=== PATIENT | female | born 1995 | race Caucasian/White ===

== ENCOUNTER 2021-06-07 05:54 | Day surgery (SDC) | payer SELFPAY, OTHER ==
--- NOTE | 2021-06-07 | MISC_PTH ---
PATIENT: DOT DAVIS LOC: [facility] – [place] U#:[id number] AGE/SX: 25/F ROOM: RE06/07/[address]: Dr. 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 AM/am 06/09/21 MICROSCOPIC DESCRIPTION Slides are reviewed. GROSS DESCRIPTION Received in fixative is one container labeled with the patient's name and designated possible cementoma. The specimen consists of a molar tooth measuring 2.5 x 1 x 1 cm. No soft tissue is adherent to the tooth. Present also free in the container is a nodular fragment of white-hines bone-like tissue measuring 1 cm in diameter. This fragment is bisected and totally submitted in one cassette after decalcification. Note, no sections of the tooth have been submitted. / AM:shlomo 06/07/2021 TC:5 CPT: 37170,60520
[2021-06-07 06:27] LABS: Internal QC Validated? YES +Cl - CLEAR BKGD; Pregnancy, Urine Negative Negative
[2021-06-07 06:30] VITALS: BP 115/81; PULSE 72; RESP 18; TEMP 36.4; O2SAT 100
[2021-06-07] MEDS: Lactated Ringers 1,000 ML 15 ML IV (06:31)
[2021-06-07] MEDS: Lidocaine 1%/Epi 1:200 (30ml) 30 ML AMPUL (07:53)
[2021-06-07] MEDS: Bupivacaine Mpf 0.5% 30 ML VIAL (07:53)
[2021-06-07 08:39] VITALS: BP 110/65; BP 115/81; PULSE 83; RESP 16; TEMP 36.3; O2SAT 100
[2021-06-07 08:45] VITALS: BP 107/68; BP 115/81; PULSE 84; RESP 15; O2SAT 100
--- NOTE | 2021-06-07 08:57 | PCM.DC ---
Discharge Instructions Follow Up Care Test Results: Test results from this visit will be discussed in further detail at your follow-up appointment, if applicable. Discharge Plan Admission Attending Provider: Medhat Cowart Primary Care Provider: Unique Vargas Primary Instructions Patient Instructions: Surgery for a Mouth or Throat Tumor Discharge Orders/Prescriptions Prescriptions: No Action Adrenal Support 1 tsp PO/SL DAILY RF: 0 Endrocrine Support 1 tsp PO/SL DAILY RF: 0 Kidney Support 0.5 tsp PO/SL DAILY RF: 0 Liver Support 0.5 tsp PO/SL DAILY RF: 0 Stem Cell 2 tab PO/SL DAILY RF: 0 Vital Blend 1 tsp PO/SL DAILY RF: 0 Referrals / Follow Up: Care Physician,No Primary [Primary Care Provider] - Medhat Cowart DDS [STAFF PHYSICIAN] - Disposition Disposition (needs filled in before D/C Order can be placed): Home, Self Care
[2021-06-07 09:00] VITALS: BP 110/77; BP 115/81; PULSE 79; RESP 15; TEMP 36.6; O2SAT 100
[2021-06-07 09:50] VITALS: BP 111/78; BP 115/81; PULSE 73; RESP 16; TEMP 36.2; O2SAT 100
--- NOTE | 2021-06-07 10:05 | OP.PCM_ITS ---
Report of Operation Date of Procedure: 06/07/21 Pre-Operative Diagnosis: Tumor Mandible Post-Operative Diagnosis: Same Surgery/Procedure Performed:: Surgical removal mandibular tumor Type of Anesthesia: General Special Medications: None Specimen's removed: Tooth #30 and mandibular tumor Drains: None Estimated Blood Loss (mL): 50 cc Description of Procedure: Patient was identified in the preoperative holding area where the risk and potential complications of the procedure were explained to both the patient and her mother. The potential risks and complications included but were not limited to pain, infection, injury to neurovascular structures resulting in paresthesia of the right inferior alveolar nerve and possible need for further procedures. Consent was signed patient agreed. Patient was then taken to the operating room placed into the supine position on the operating room table. Anesthesia was induced intravenously and the patient was intubated the oral route without complication. 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 At this time lid ocaine mixed with Marcaine 0.025% without epinephrine was injected into the right mandible specifically for mandibular block of the inferior alveolar nerve. At this time a throat pack was placed. At this time a full-thickness mucoperiosteal incision was made starting at the posterior mandibular body and carried forward to tooth #21. The full-thickness flap was elevated to the inferior border of the mandible and it was noted that the lesion was perforating the buccal cortex of bone. At this time osteotomy procedure was performed to gain access to the bony lesion chin Compass tooth #30 which was removed. The lesion was then totally removed the bone was curetted and the inferior alveolar nerve appeared to be intact without any injury. The surgical site was thoroughly irrigated the incision was sutured with 3-0 Chromic Gut suture in an interrupted fashion. The throat pack was then removed the throat was irrigated and suctioned free of all debris the patient was then awakened and extubated in the operating room and taken to the postanesthesia care unit in stable condition breathing spontaneously. All sponge and needle counts were correct Procedure Start Time: 08:02 Procedure Stop Time: 09:11 Complications None
== END 2021-06-07 23:59 | disposition home or self-care (01) ==
LOC: SDC 05:58 → AC 06:00
PROVIDERS: Anesthesiology; Referring Provider Dentist Oral and Maxillofacial Surgery; Visit Provider Dentist Oral and Maxillofacial Surgery
PROC: (CPT 21047; principal; 2021-06-07 07:15)
DX: D16.5 Benign neoplasm of lower jaw bone (principal)
CPT/HCPCS: 21047; 00190; 81025; 87426; 88300; J7120; J0330; J2405